=== PATIENT | female | born 1990 | race American Indian/Alaskan Native ===

== ENCOUNTER 2016-09-27 14:28 | Emergency (ER) | payer MEDICAID ==
[2016-09-27 14:40] VITALS: BP 119/77
--- NOTE | 2016-09-27 15:12 | Emergency Department Report ---
Chief Complaint: Abdominal Pain Stated Complaint: ABD CRAMPS Time Seen by Provider: 09/27/16 15:10 - HPI History of Present Illness: Patient is a 26 y/o female at 15 weks gestation who presents due to pelvic cramping x 1 day. Patient denies any vaginal bleeding. - ROS Review of Systems: no vaginal bleeding, no dysuria, no hematuria, no vomiting or diarrhea - Exam Vital Signs: Vital Signs 09/27/16 14:35 Temperature 97.9 F Pulse Rate 90 Respiratory 20 Rate Blood Pressure 119/77 O2 Sat by Pulse 100 Oximetry Physical Exam: pelvic tenderness MSE screening note: Focused history and physical exam performed. Due to findings the following was ordered: ED Disposition for MSE Condition: Stable Instructions: Abdominal Pain (ED)
[2016-09-27 15:42] LABS: Basophils % (Auto) 0.4 % (0.0-1.8); Hematocrit 37.2 % (30.3-42.9); Hemoglobin 12.4 gm/dl (10.1-14.3); Mean Corpuscular HGB Conc 33 % (30-34); Mean Corpuscular Hemoglobin 31 pg (28-32); Mean Corpuscular Volume 93 fl (79-97); Platelet Count 333 K/mm3 (140-440); Red Blood Count 4.01 M/mm3 (3.65-5.03); Red Cell Distribution Width 12.7 % (13.2-15.2); White Blood Count 7.2 K/mm3 (4.5-11.0)
[2016-09-27 16:05] LABS: Alanine Aminotransferase 15 units/L (7-56); Albumin 4.1 g/dL (3.9-5); Alkaline Phosphatase 63 units/L (35-129); Anion Gap 19 mmol/L; Bilirubin,Total 0.3 mg/dL (0.1-1.2); Blood Urea Nitrogen 7 mg/dL (7-17); Calcium 9.7 mg/dL (8.4-10.2); Carbon Dioxide 23 mmol/L (22-30); Glucose 66 mg/dL (65-100); Lipase 22 units/L (13-60); Potassium 3.7 mmol/L (3.6-5.0); Sodium 135 mmol/L (137-145); Total Protein 8.3 g/dL (6.3-8.2)
--- NOTE | 2016-09-27 16:59 | Ultrasound Report ---
COMPLETE OB ULTRASOUND: Gestation: 1 Position: breech Amniotic Fluid: X Placenta: anterior Placental Grade: 0 Heart Rate: 145 BPM Cervical length: 4.0 cm (Normal > 3 cm) x It is too early for a anatomical survey BPD: 2.95 cm = 15 w 3 d HC: 11.12 cm = 15 w 3 d AC: 9.1 cm = 15 w 2 d FL: 1.73 cm = 15 w 1 d HC/AC Ratio: 1.2 Cephalic Index: 79.1 Clinical age = 15 w 2 d EDC: 03/19/17 US Gest. Age = 15 w 2 d EDC: 03/19/17
--- NOTE | 2016-10-04 17:29 | ED Elopement Review ---
ED Pt Elopement review - Results review Lab results: Laboratory Tests 09/27/16 09/27/16 09/27/16 15:21 15:21 15:21 WBC 7.2 RBC 4.01 Hgb 12.4 Hct 37.2 MCV 93 MCH 31 MCHC 33 RDW 12.7 L Plt Count 333 Lymph % (Auto) 22.3 [place] % (Auto) 7.5 H Eos % (Auto) 3.0 Baso % (Auto) 0.4 Lymph # 1.6 [place] # 0.5 Eos # 0.2 Baso # 0.0 Seg Neutrophils % 66.8 Seg Neutrophils # 4.8 Sodium 135 L Potassium 3.7 Chloride 97.0 L Carbon Dioxide 23 Anion Gap 19 BUN 7 Creatinine 0.5 L Estimated GFR > 60 BUN/Creatinine Ratio 14.00 Glucose 66 Calcium 9.7 Total Bilirubin 0.3 AST 19 ALT 15 Alkaline Phosphatase 63 Total Protein 8.3 H Albumin 4.1 Albumin/Globulin Ratio 1.0 Lipase 22 HCG, Qual Positive - Call Back decision Pt Call Back Decision: No action required
== END 2016-09-27 17:40 | disposition left against medical advice (07) ==
LOC: ED 14:28
DX: O26.892 Other specified pregnancy related conditions, second trimester (principal); R10.2 Pelvic and perineal pain; Z53.21 Procedure and treatment not carried out due to patient leaving prior to being seen by health care provider
CPT/HCPCS: 36415; 76805; 80053; 83690; 84703; 85025